=== PATIENT | female | born 1965 | race Caucasian/White ===

== ENCOUNTER 2021-11-04 13:53 | Emergency (ER) | payer OTHER, SELFPAY ==
[2021-11-04 13:55] VITALS: BP 161/99; PULSE 93; RESP 15; TEMP 36.9; O2SAT 96; BMI 18.9
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
[2021-11-04] MEDS: KETOROLAC 30 MG/ML VIAL 15 MG IM (14:43)
[2021-11-04 14:54] VITALS: BP 127/81; PULSE 75; RESP 18; O2SAT 99
== END 2021-11-04 14:54 | disposition home or self-care (01) ==
PROVIDERS: Emergency Provider Physician Assistant; PCP Internal Medicine
DX: G44.209 Tension-type headache, unspecified, not intractable (principal); W05.1XXA Fall from non-moving nonmotorized scooter, initial encounter
CPT/HCPCS: 96372; 99283; J1885

== ENCOUNTER → 2022-01-12 09:05 | Outpatient (CLI) | payer OTHER, SELFPAY ==
[2022-01-12 11:20] LABS: COVID19 -Nasal RAPID Negative (Negative)
== END ==
PROVIDERS: PCP Internal Medicine; Visit Provider Surgery
DX: Z20.822 Contact with and (suspected) exposure to COVID-19 (principal); Z01.812 Encounter for preprocedural laboratory examination
CPT/HCPCS: 87635; C9803

== ENCOUNTER 2022-01-15 09:38 | Day surgery (SDC) | payer OTHER, SELFPAY ==
--- NOTE | 2022-01-15 | PATH_ITS ---
[facility] Accession Number: [id number] . 01 Material submitted: . PART A: esophagus - DISTAL ESOPHAGUS BIOPSY PART B: esophagus - PROXIMAL ESOPHAGUS BIOPSY PART C: sigmoid colon - SIGMOID POLYP PART D: colon - TRANSVERSE COLON POLYP . 01 Clinical history: . A: R/O EOE . 01 Diagnosis: A-B. Distal Esophagus, Proximal Esophagus, Biopsies: Squamous epithelium with no diagnostic abnormality. Intraepithelial eosinophils are not increased. Negative for dysplasia and malignancy. . C. Sigmoid Colon, Polyp, Biopsy: Tubular adenoma. The excision appears complete. . D. Transverse Colon, Polyp, Biopsy: Benign lymphoid aggregate. MRV 01/18/2022 1842 Local . 01 Electronically signed: . Tracey Horan MD, Pathologist NPI- [id number] . 01 Gross description: . Part A: DISTAL ESOPHAGUS BIOPSY: Received in formalin are 2 fragment(s) of rondon, soft tissue measuring 0.1 x 0.1 x 0.1 cm to 0.2 x 0.2 x 0.2 cm submitted entirely in 1 cassette(s) Part B: PROXIMAL ESOPHAGUS BIOPSY: Received in formalin are 2 fragment(s) of rondon, soft tissue measuring 0.1 x 0.1 x 0.1 cm to 0.3 x 0.3 x 0.2 cm submitted entirely in 1 cassette(s) Part C: SIGMOID POLYP: Received in formalin is 1 fragment of rondon soft tissue measuring 1.2 x 0.8 x 1.0 cm. Specimen is sectioned and submitted in its entirety in 1 cassette. Part D: TRANSVERSE COLON POLYP: Received in formalin is 1 fragment(s) of rondon, soft tissue measuring 0.3 x 0.2 x 0.2 cm submitted entirely in 1 cassette(s) /SIERRA 01/16/2022 2039 Local . 01 Pathologist provided ICD-10: D12.5 . 01 CPT . 324364, 276947, 679392, 460471 Specimen Comment: A courtesy copy of this report has been sent to [phone], [phone] Specimen Comment: [phone], [phone] Performed at: 01 [facility] [address] [place] [address] [address] [facility], [place], [place] [id number] MD Telly Regalado MD Phone: [phone]
[2022-01-15 09:55] VITALS: BP 120/76; PULSE 74; RESP 16; TEMP 36.9; O2SAT 99; BMI 17.4
[2022-01-15] MEDS: SODIUM CHLORIDE 0.9% 1,000 ML 84 ML IV (10:04)
--- NOTE | 2022-01-15 10:56 | PM.HP.1 ---
History of Present Illness History of Present Illness Chief complaint: Colonoscopy/EGD Patient History Family & Social History Social History: household members none Tobacco & Substance use: Smoking Status Unknown if ever smoked alcohol intake frequency holiday/special occasion Substance Use Type does not use Meds Home Medications and Allergies Home Medications Medication Instructions Recorded Confirmed Type DIAZEPAM (Valium) 5 mg PO PRN ##0 05/18/10 History HYDROCODONE/ACET 5/500 - 10 tab PO PRN ##0 05/18/10 01/15/22 History (Hydrocodon-Acetaminophen 5-500) ondansetron 4 mg disintegrating 4 mg sublingual Q6HP PRN ##5 04/03/16 Rx tablet (Zofran ODT) hydroxychloroquine 200 mg tablet 200 mg PO DAILY 01/15/22 01/15/22 History Allergies Allergy/AdvReac Type Severity Reaction Status Date / Time diphenhydramine Allergy Intermediate Verified 01/15/22 09:50 [From BENADRYL] Sulfa (Sulfonamide Allergy Intermediate Verified 01/15/22 09:50 Antibiotics) [SULFA (SULFONAMIDE ANTIBIOTICS)] Review of Systems Review of Systems Narrative: Negative Exam Vital Signs (past 8 hours): - 01/15/22 09:55 Temperature 98.4 F Pulse Rate 74 Respiratory Rate 16 Blood Pressure 120/76 Pulse Oximetry 99 Oxygen Delivery Method Room Air Oxygen Delivery Method Room Air Narrative Exam Narrative: Awake alert and oriented x3, pupils equal round reactive to light, oropharynx clear, heart regular rate and rhythm, lungs clear to auscultation bilaterally, abdomen nontender and nondistended, extremities without edema, no gross neurologic deficits noted Assessment & Plan Assessment & Plan narrative: Nausea, heartburn, hematemesis, melena, hematochezia for EGD and colonoscopy Time Spent With Patient Critical Care time: I spent a total of [] minutes of critical care time on this patient's care today; this time is exclusive of procedural time.
--- NOTE | 2022-01-15 11:08 | PM.OP.EGD ---
Operative Date/Time/Diagnoses Date of procedure: 01/15/22 Procedure & Clinicians Study performed: EGD with cold biopsy Indications: Hematemesis, nausea, melena Procedure Notes Procedure in detail: Prior to the procedure, history and physical was performed, and patient medications and allergies were reviewed. Preprocedure nursing history and assessment was reviewed. Patient identification and proposed procedure were verified by the physician and nurse in the procedure room. The physical status of the patient was reassessed after the procedure. After informed consent was obtained including risks, benefits, and alternatives, the scope was passed under direct vision. Throughout the procedure, the patient's blood pressure, pulse, and oxygen saturations were monitored continuously. The upper endoscope was introduced through the mouth and advanced to the 2nd portion of the duodenum. Retroflexion was performed in the stomach. The patient tolerated the procedure well. The proximal and mid esophagus were normal appearing. The distal esophagus was characterized by circumferential rings suspicious for EOE. The Z-line was regular and was located at 38 cm. Biopsies were taken from the proximal and distal esophagus to rule out EOE. The entire examined stomach was normal appearing. The entire examined duodenum was normal appearing Impression: Mucosal findings and distal esophagus suspicious for EOE. Biopsies taken from the proximal and distal esophagus. Regular Z-line. Normal appearing stomach Normal appearing examined duodenum Complications: other (EBL minimal. No complications) Post-procedure Plan for aftercare: Follow-up pathology results Proceed with colonoscopy today
--- NOTE | 2022-01-15 11:33 | PM.OP.COLON ---
Operative Date/Time/Diagnoses Date of procedure: 01/15/22 Procedure & Clinicians Study performed: Colonoscopy with cold biopsy and snare polypectomy Indications: Hematochezia, + FIT. This is the patient's 1st colonoscopy. Procedure Notes Procedure in detail: Prior to the procedure, history and physical was performed, and patient medications and allergies were reviewed. Preprocedure nursing history and assessment was reviewed. Patient identification and proposed procedure were verified by the physician and nurse in the procedure room. The physical status of the patient was reassessed after the procedure. After informed consent was obtained including risks, benefits, and alternatives, the scope was passed under direct vision. Throughout the procedure, the patient's blood pressure, pulse, and oxygen saturations were monitored continuously. The pediatric colonoscope was introduced through the anus and advanced to the cecum as identified by the appendiceal orifice and ileocecal valve. The patient tolerated the procedure well. Bowel prep was deemed adequate to detect polyps greater than 5 mm. Digital rectal and perianal examinations were unremarkable. Retroflexion in the rectum revealed grade 2 internal hemorrhoids Scattered medium-sized diverticula were noted in the sigmoid colon. A 15 mm pedunculated polyp was removed from the sigmoid colon using a hot snare and retrieved A 3 mm sessile polyp was removed from the transverse colon with a Jumbo forceps and retrieved Impression: Internal hemorrhoids Sigmoid colon diverticulosis 15 mm polyp removed from the sigmoid colon 3 mm polyp removed from the transverse colon Complications: other (EBL minimal. No complications) Post-procedure Plan for aftercare: Follow-up pathology results Repeat colonoscopy at a date to be determined based on pathology results Resume home medications Resume previous diet Patient has a contact number available for emergencies. The signs and symptoms of potential delayed complications were discussed with the patient. Return to normal activities tomorrow. Written discharge instructions were provided to the patient. Discharge home with escort
[2022-01-15 11:36] VITALS: BP 105/79; PULSE 77; RESP 18; TEMP 36.2; O2SAT 100
[2022-01-15 11:41] VITALS: BP 108/72; PULSE 88; RESP 17; O2SAT 100
[2022-01-15 11:45] VITALS: BP 106/68; PULSE 74; RESP 19; TEMP 36.4; O2SAT 100
[2022-01-15 11:50] VITALS: BP 113/70; PULSE 71; RESP 15; TEMP 36.4; O2SAT 100
== END 2022-01-15 12:10 | disposition home or self-care (01) ==
PROVIDERS: PCP Internal Medicine; Referring Provider Internal Medicine Gastroenterology; Visit Provider Internal Medicine
PROC: 0DJD8ZZ Inspection of Lower Intestinal Tract, Via Natural or Artificial Opening Endoscopic (ICD-10-PCS; CPT 45378; principal; 2022-01-15 10:30)
PROC: 0DJ08ZZ Inspection of Upper Intestinal Tract, Via Natural or Artificial Opening Endoscopic (ICD-10-PCS; CPT 43235; 2022-01-15 10:30)
DX: K92.1 Melena (principal); K92.0 Hematemesis; K57.30 Diverticulosis of large intestine without perforation or abscess without bleeding; K64.8 Other hemorrhoids; D12.5 Benign neoplasm of sigmoid colon
CPT/HCPCS: 45385; 45380; 43239; J2704

== ENCOUNTER → 2024-09-14 09:38 | Outpatient (CLI) | payer OTHER, SELFPAY ==
[2024-09-14 10:21] LABS: Add Manual Diff / Slide Review NO; Basophils Absolute Auto 0 /uL (0-100); Basophils Percent Auto 1.1 % (0-2); Eosinophils Absolute Auto 0 /uL (0-450); Eosinophils Percent Auto 0.6 % (2-4); Hematocrit 37.8 % (36-46); Lymphocytes Absolute Auto 800 /uL (1100-4500); Lymphocytes Percent Auto 22.7 % (25-40); Mean Corpuscular HGB Conc 34.3 % (30-36); Mean Corpuscular Hemoglobin 32.3 PG (26-34); Mean Corpuscular Volume 94.1 fL (80-100); Monocytes Absolute Auto 300 /uL (0-900); Monocytes Percent Auto 7.9 % (3-14); Neutrophils Absolute Auto 2400 /uL (1500-7000); Neutrophils Percent Auto 67.7 % (50-75); Platelet Count 324 X10^3/uL (150-400); Red Blood Cell Count 4.01 X10^6/uL (4.0-5.2); Red Cell Distribution Width 12.7 % (11.6-14.8); White Blood Cell Count 3.5 X10^3/uL (4.5-11.0)
[2024-09-14 10:57] LABS: Alanine Aminotransferase 19 IU/L (<35); Albumin 4.3 g/dL (3.5-5.0); Albumin Globulin Ratio 1.5 (1.0-2.8); Alkaline Phosphatase 102 U/L (38-126); Aspartate Aminotransferase 26 IU/L (14-36); BUN Creatinine Ratio 23.5 (6-22); Bilirubin Total 0.5 mg/dL (0.2-1.3); Blood Urea Nitrogen 16 mg/dL (7-17); Calcium 9.6 mg/dL (8.4-10.2); Carbon Dioxide 27 mmol/L (22-32); Chloride 105 mmol/L (98-107); Cholesterol 232 mg/dL (140-199); Estimated Glomerular Filt Rate > 60 mL/min (>60); Globulin 2.9 g/dL (1.7-4.1); Glucose 93 mg/dL (70-99); HEMOLYSIS < 15 (0-50); Potassium 4.8 mmol/L (3.4-5.1); Sodium 137 mmol/L (137-145); Total Protein 7.2 g/dL (6.3-8.2); Triglycerides 95 mg/dL (35-150)
[2024-09-14 11:13] LABS: HDL Cholesterol 125 mg/dL (40-60); LDL Cholesterol Calculated 88 mg/dL (<100)
== END ==
PROVIDERS: PCP Family Medicine; Referring Provider Family Medicine; Visit Provider Family Medicine
DX: R79.89 Other specified abnormal findings of blood chemistry (principal); Z85.3 Personal history of malignant neoplasm of breast; Z13.6 Encounter for screening for cardiovascular disorders; M41.9 Scoliosis, unspecified
CPT/HCPCS: 36415; 80053; 80061; 85025

== ENCOUNTER → 2024-09-16 08:17 | Outpatient (CLI) | payer OTHER, SELFPAY ==
--- NOTE | 2024-09-16 08:20 | DI.RAD.S_ITS ---
PROCEDURE: XR T AND L SPINE 2 TO 3 VIEWS INDICATIONS: progressive pain TECHNIQUE: 2 views acquired of the thoracolumbar spine. COMPARISON: None. FINDINGS: Bones: Moderate to severe dextroscoliosis of thoracolumbar spine is seen with apex at T2 level and Giang angle measuring 49.7???. No acute fractures or dislocations. Moderate spondylitic changes are noted throughout lower thoracic and lumbar spine. Visualized inferior ribs appear intact. No suspicious bony lesions. Soft tissues: No suspicious soft tissue calcifications. IMPRESSION: Moderate to severe dextroscoliosis of thoracolumbar spine with Giang angle measures up to 49.7???. Moderate spondylitic changes throughout lower thoracic and lumbar spine. No acute vertebral body compression fracture. Dictated by: Leonardo Garza M.D. on 09/16/2024 at 21:12 Approved by: Leonardo Garza M.D. on 09/16/2024 at 21:14
== END ==
PROVIDERS: PCP Family Medicine; Referring Provider Family Medicine; Visit Provider Family Medicine
DX: M41.9 Scoliosis, unspecified (principal); M47.816 Spondylosis without myelopathy or radiculopathy, lumbar region; M47.817 Spondylosis without myelopathy or radiculopathy, lumbosacral region
CPT/HCPCS: 72082

== ENCOUNTER → 2024-10-19 10:13 | Outpatient (CLI) | payer OTHER, SELFPAY ==
--- NOTE | 2024-10-19 10:14 | DI.MG.S_ITS ---
MM diagnostic mammo BI: 10/19/2024. BI-RADS: 3 CLINICAL: 59-year old female for bilateral diagnostic mammogram. No Tyrer- Cuzick risk score calculation due to the patient's personal history of breast cancer. Patient reports a history of right breast carcinoma diagnosed at age 37. Status-post right lumpectomy with radiation therapy and chemotherapy. Patient has undergone neoadjuvant chemotherapy. The patient presents for evaluation of sharp, shooting pain in the lateral right breast that has since resolved. PRIOR EXAMS 05/09/2020. MAMMOGRAPHY TECHNIQUE: 2D and 3D (tomosynthesis) digital mammographic views obtained, with additional images as needed for full coverage. Current study was also evaluated with a Computer Aided Detection (CAD) system. DENSITY C. The breasts are heterogeneously dense, which may obscure small masses. MAMMOGRAPHY FINDINGS Right: Biopsy marker present on the right. Benign-appearing post-surgical changes noted on the right. There are no suspicious masses, calcifications, or other findings in the breast. No significant change from comparison. Left: Upper Inner at 11:00, Posterior depth, measuring 0.3cm: There are grouped coarse calcifications. These appear to be increased compared to the 05/09/2020 study. IMPRESSION: Right * No evidence of malignancy with benign findings. Left (Calcification): Upper Inner at 11:00, Posterior depth, measuring 0.3cm * Probably Benign. RECOMMENDATIONS Right * Diffuse, non-focal symptoms, such as pain or fullness are typically benign. Clinical follow-up is recommended, and further management of these symptoms should be based on the results of clinical evaluation. If diffuse symptoms persist or become more focal in nature, further clinical evaluation should be considered. Left: Upper Inner at 11:00, Posterior depth * Six month followup with diagnostic mammography. COMMENTS: Findings and recommendations were conveyed to the patient during today's evaluation. OVERALL ASSESSMENT CATEGORY BI-RADS-3: Probably Benign. ELECTRONICALLY SIGNED: Kari Dunaway M.D. on 10/19/2024 at 03:43:48 PM PT Interpreting Station ID: [id number]
== END ==
LOC: MAMMO 10:14
PROVIDERS: PCP Family Medicine; Referring Provider Family Medicine; Visit Provider Family Medicine
DX: R92.1 Mammographic calcification found on diagnostic imaging of breast (principal); N64.4 Mastodynia; R92.333 Mammographic heterogeneous density, bilateral breasts; Z85.3 Personal history of malignant neoplasm of breast
CPT/HCPCS: 77066; G0279

== ENCOUNTER → 2024-12-04 09:19 | Outpatient (CLI) | payer OTHER, SELFPAY ==
[2024-12-04 09:33] LABS: Add Manual Diff / Slide Review NO; Hematocrit 39.6 % (36-46); Hemoglobin 14.0 g/dL (12.0-16.0); Lymphocytes Absolute Auto 700 /uL (1100-4500); Mean Corpuscular HGB Conc 35.4 % (30-36); Mean Corpuscular Hemoglobin 32.5 PG (26-34); Mean Corpuscular Volume 91.6 fL (80-100); Platelet Count 319 X10^3/uL (150-400)
== END ==
PROVIDERS: PCP Family Medicine; Referring Provider Family Medicine; Visit Provider Family Medicine
DX: D72.819 Decreased white blood cell count, unspecified (principal)
CPT/HCPCS: 36415; 85025

== ENCOUNTER → 2025-03-03 16:32 | Outpatient (CLI) | payer OTHER, SELFPAY ==
[2025-03-03 17:39] LABS: Add Manual Diff / Slide Review NO; Hematocrit 37.4 % (36-46); Hemoglobin 13.0 g/dL (12.0-16.0); Lymphocytes Absolute Auto 800 /uL (1100-4500); Mean Corpuscular HGB Conc 34.8 % (30-36); Mean Corpuscular Hemoglobin 31.8 PG (26-34); Mean Corpuscular Volume 91.3 fL (80-100); Platelet Count 344 X10^3/uL (150-400)
[2025-03-03 18:25] LABS: Alanine Aminotransferase 16 IU/L (<35); Albumin 4.5 g/dL (3.5-5.0); Albumin Globulin Ratio 1.5 (1.0-2.8); Alkaline Phosphatase 103 U/L (38-126); Blood Urea Nitrogen 19 mg/dL (7-17); Calcium 9.6 mg/dL (8.4-10.2); Carbon Dioxide 24 mmol/L (22-32); Chloride 102 mmol/L (98-107); Estimated Glomerular Filt Rate > 60 mL/min (>60); Globulin 3.1 g/dL (1.7-4.1); Glucose 89 mg/dL (70-99); HEMOLYSIS < 15 (0-50); Potassium 4.3 mmol/L (3.4-5.1); Sodium 136 mmol/L (137-145); Total Protein 7.6 g/dL (6.3-8.2)
[2025-03-03 18:43] LABS: Vitamin D 25 Hydroxy (D3) 13.9 ng/mL (30.0-100.0)
[2025-03-03 18:56] LABS: TSH w/ Reflex to FT4 1.63 uIU/mL (0.47-4.68)
[2025-03-03 19:01] LABS: Ferritin 12 ng/mL (11-264)
== END ==
PROVIDERS: PCP Family Medicine; Referring Provider Family Medicine; Visit Provider Family Medicine
DX: R53.83 Other fatigue (principal); L65.9 Nonscarring hair loss, unspecified; R79.89 Other specified abnormal findings of blood chemistry
CPT/HCPCS: 36415; 80053; 82306; 82728; 84443; 85025